=== PATIENT | female | born 1955 | race Caucasian/White ===

== ENCOUNTER → 2017-02-15 | Outpatient (CLI) | payer BC ==
[~2017-02-15] MED LIST: ASPIRIN 32325 MG/TAB PO; EPA/GLA1 SGL PO; INDERAL LA 60MG60 MG PO; PLAQUENIL 200M200 MG PO; PREDNISONE 2.52.5 MG PO
== END ==
LOC: MC.RAD 14:46
DX: Z12.31 Encounter for screening mammogram for malignant neoplasm of breast (principal)

== ENCOUNTER → 2018-03-05 | Outpatient (CLI) | payer BC | LOC: MC.RAD 12:51 | DX: Z12.31 Encounter for screening mammogram for malignant neoplasm of breast (principal) ==

== ENCOUNTER 2018-09-13 20:49 | Emergency (ER) | payer BC ==
[~2018-09-13] VITALS: Ht 160 cm; Wt 82.7 kg
[2018-09-13 20:57] VITALS: TEMP 97.6
[2018-09-13 21:13] LABS: BASO # 0.1 (0.0-0.2); BASO % 0.7 % (0.0-2.0); EOS # 0.3 (0.0-0.7); EOS % 4.3 % (0-4.0); GRAN # 3.7 (1.4-6.5); GRAN % 54.6 % (42.2-75.2); HEMATOCRIT 43.8 % (37.0-47.0); HEMOGLOBIN 14.7 g/dl (12.5-16.0); LYMPH # 1.9 (1.2-3.4); MEAN CELL VOLUME 93 fl (80.0-100.0); MEAN CORPUSCULAR HEMOGLOBIN 31 pg (27.0-31.0); MEAN CORPUSCULAR HGB CONC 34 g/dl (33.0-37.0); MEAN PLATELET VOLUME 9.7 fl (7.4-10.4); MONO # 0.8 (0.1-0.6); MONO % 12.3 % (1.7-9.3); PLATELET COUNT 225 K/mm3 (130-400); RED BLOOD COUNT 4.73 M/mm3 (4.10-5.30); REDCELL DISTRIBUTION WIDTH-CV 12.5 % (11.5-14.5)
[2018-09-13 21:19] LABS: ALANINE AMINOTRANSFERASE 53 U/L (9-52); ALBUMIN 4.3 gm/dL (3.5-5.0); ALKALINE PHOSPHATASE 85 U/L (50-136); ANION GAP 9 mmol/L (7-16); AST,SGOT 101 U/L (15-37); BILIRUBIN,TOTAL 0.4 mg/dL (0.0-1.0); BLOOD UREA NITROGEN 19 mg/dL (7-17); CALCIUM 9.8 mg/dL (8.4-10.2); CARBON DIOXIDE 27 mmol/L (22-30); CHLORIDE 106 mmol/L (98-107); CREATININE, serum 0.67 mg/dL (0.52-1.25); GLUCOSE 100 mg/dL (74-106); POTASSIUM 4.3 mmol/L (3.4-5.0); SODIUM 141 mmol/L (137-145); TOTAL PROTEIN 7.4 gm/dL (6.4-8.2)
[2018-09-13 21:33] LABS: TROPONIN-I < 0.012 ng/mL (0.000-0.034)
[2018-09-14 00:50] VITALS: BP 110/69; PULSE 64
== END 2018-09-14 01:02 | disposition home or self-care (01) ==
LOC: COL.ER 20:49
PROVIDERS: Emergency Medicine
DX: R07.89 Other chest pain (principal); I10 Essential (primary) hypertension; Z98.890 Other specified postprocedural states; Z79.82 Long term (current) use of aspirin
CPT/HCPCS: J7030

== ENCOUNTER → 2019-03-06 | Outpatient (CLI) | payer BC | LOC: MC.RAD 12:59 | DX: Z12.31 Encounter for screening mammogram for malignant neoplasm of breast (principal) ==

== ENCOUNTER → 2020-03-16 | Outpatient (CLI) | payer BC | LOC: MC.RAD 12:55 | DX: Z12.31 Encounter for screening mammogram for malignant neoplasm of breast (principal) ==

== ENCOUNTER 2023-09-30 06:24 | Observation (INO) | payer MEDICARE, BC ==
[2023-09-30] VITALS (13 sets, daily range): BP systolic 111–165; BP diastolic 59–100; PULSE 49–78; TEMP 97.5–98.5
[~2023-09-30] VITALS: Ht 162.6 cm; Wt 74.0 kg
[2023-09-30 07:11] LABS: BASO # 0.1 K/mm3 (0.0-0.2); BASO % 0.5 % (0.0-2.0); EOS # 0.2 K/mm3 (0.0-0.7); EOS % 1.7 % (0.0-4.0); GRAN # 8.8 K/mm3 (1.4-6.5); GRAN % 77.2 % (42.2-75.2); HEMATOCRIT 43.8 % (37.0-47.0); HEMOGLOBIN 14.9 g/dl (12.5-16.0); LYMPH # 1.4 K/mm3 (1.2-3.4); LYMPH % 11.9 % (20.0-51.0); MEAN CELL VOLUME 93 fl (80.0-100.0); MEAN CORPUSCULAR HEMOGLOBIN 32 pg (27-31); MEAN CORPUSCULAR HGB CONC 34 g/dl (33.0-37.0); MONO % 8.4 % (1.7-9.3); PLATELET COUNT 259 K/mm3 (130-400); RED BLOOD COUNT 4.73 M/mm3 (4.10-5.30); REDCELL DISTRIBUTION WIDTH-CV 12.6 % (11.5-14.5)
[2023-09-30 07:25] LABS: ALBUMIN 3.9 gm/dL (3.4-4.8); BILIRUBIN,TOTAL 0.4 mg/dL (0.2-1.2); C-REACTIVE PROTEIN 0.31 mg/dL (0.00-0.50); CALCIUM 9.6 mg/dL (8.4-10.2); CREATININE, serum 0.71 mg/dL (0.57-1.11); TOTAL PROTEIN 7.2 gm/dL (6.2-8.1)
[2023-09-30] MEDS ORDERED: Iohexol 300 - 100 ML VIAL IV ONE (07:49)
[2023-09-30] MEDS ORDERED: NS 100 ML IV SCH (07:49)
[2023-09-30] MEDS ORDERED: Ondansetron 4 MG/2 ML VIAL IV PRN ×2 (09:00→09:45)
[2023-09-30] MEDS ORDERED: Morphine 4 MG/ML VIAL IV PRN (09:00)
[2023-09-30] MEDS ORDERED: LR 1,000 ML IV ONE (09:00)
[2023-09-30] MEDS ORDERED: hydrALAZINE 20 MG/ML 1 ML VIAL IV PRN (09:45)
[2023-09-30] MEDS ORDERED: droPERidol 2.5 MG/ML 2 ML VIAL IV PRN (09:45)
[2023-09-30] MEDS ORDERED: HYDROmorphone 2 MG/1 ML VIAL IV PRN (09:45)
[2023-09-30] MEDS ORDERED: fentaNYL 50 MCG/ML 2 ML VIAL IV PRN ×2 (09:45)
[2023-09-30] MEDS ORDERED: LR 1,000 ML IV SCH (09:45)
[2023-09-30] MEDS ORDERED: MASON NATURAL2000 IU PO (09:50)
--- NOTE | 2023-09-30 10:18 | NUR ---
Patient to room 328 from the ED. A&Ox4. VSS. IV CDI. Denies pain and discomfort. NPO. Nurse oriented the patient to location, call light and room. No further need expressed. Call light within reach
[2023-09-30] MEDS ORDERED: Ondansetron 4 MG/2 ML VIAL ONE (11:51)
[2023-09-30] MEDS ORDERED: Rocuronium 50 MG/5 ML Multi-Dose VIAL ONE (11:51)
[2023-09-30] MEDS ORDERED: Succinylcholine PF 100 MG/5 ML SYRINGE/POLY AMP IV ONE (11:51)
[2023-09-30] MEDS ORDERED: fentaNYL 50 MCG/ML 2 ML VIAL ONE ×2 (11:51→13:53)
[2023-09-30] MEDS ORDERED: dexAMETHasone 10 MG/ML VIAL ONE (11:51)
[2023-09-30] MEDS ORDERED: NS 10 ML IV ONE (11:51)
[2023-09-30] MEDS ORDERED: ePHEDrine 50 MG/ML VIAL ONE (13:43)
--- NOTE | 2023-09-30 14:45 | NUR ---
Patient to room 328 by bed from the OR. at the bedside. Patient A&Ox4. VSS, post op VS monitored. IV CDI, fluids by gravity. Denies pain and discomfort, states that she just wants to sleep. Lap sitesx3 CDI with bandaids. Nurse oriented the patient to location, room and call light. Call light within reach
--- NOTE | 2023-09-30 21:50 | NUR ---
PATIENT ALERT AND ORIENTED X4. VSS. PATIENT HERE FOR LAP NOLAN. LAP SITES X3 WITH BANDAIDS. PATIENT DENIES ANY PAIN. PATIENT DENIES PASSING GAS. PATIENT TOLERATING FOOD BUT DIDNT EAT MUCH FOR DINNER. PATIENT ENCOURAGED TO INCREASE WATER INTAKE AND EAT IN THE MORNING. PATIENT VOIDING WITH NO ISSUES. NO FURTHER NEEDS. CALL LIGHT IN REACH.
[2023-10-01 00:26] VITALS: BP_SYST 111
[2023-10-01 03:34] VITALS: BP 100/55; PULSE 73; TEMP 98
[2023-10-01 04:05] VITALS: BP_SYST 100
[2023-10-01 07:24] VITALS: BP 129/68; PULSE 63; TEMP 97.6
[2023-10-01 08:20] VITALS: BP_SYST 129
--- NOTE | 2023-10-01 09:29 | NUR ---
Patient resting in bed. rounded this am, plan of care reivewed & plans for discharge this am. Patient daughter will be here to pick her up. Lap site x3 bandaids intact. She tolerated breakfast. Int. Will monitor.
--- NOTE | 2023-10-01 10:46 | NUR ---
Patient given all discharge instructions. Very understanding. We reviewed activity restrictions, potential to need to follow low fat diet. Incisions cares & follow up appt discusssed. As well as home med list. Int DC. Patient ambulated out with her daughter taking her home
== END 2023-10-01 10:48 | disposition home or self-care (01) ==
LOC: COL.ER 06:24 → SURG 08:46
PROVIDERS: Emergency Medicine; ADMIT Surgery
DX: K80.00 Calculus of gallbladder with acute cholecystitis without obstruction (principal); K82.1 Hydrops of gallbladder; K31.A19 Gastric intestinal metaplasia without dysplasia, unspecified site; M06.9 Rheumatoid arthritis, unspecified
CPT/HCPCS: G0378; J0330; J0690; J1100; J2405; J2543; J2704; J3010; J7120; Q9967